=== PATIENT | male | born 1970 | race Caucasian/White ===

== ENCOUNTER → 2016-07-08 | Outpatient (CLI) | payer BC ==
--- NOTE | 2016-07-08 14:48 | US ---
EXAMINATION TYPE: US carotid duplex BILAT DATE OF EXAM: 07/08/2016 2:16 PM COMPARISON: No previous CLINICAL HISTORY: G459 transient cerebral ischemic attack. Syncope EXAM MEASUREMENTS: RIGHT: Peak Systolic Velocity (PSV) cm/sec ----- Right CCA: 81.0 ----- Right ICA: 83.1 ----- Right ECA: 92.0 ICA/CCA ratio: 1.0 RIGHT: End Diastole cm/sec ----- Right CCA: 26.7 ----- Right ICA: 39.1 ----- Right ECA: 18.3 LEFT: Peak Systolic Velocity (PSV) cm/sec ----- Left CCA: 88.1 ----- Left ICA: 93.0 ----- Left ECA: 94.0 ICA/CCA ratio: 1.1 LEFT: End Diastole cm/sec ----- Left CCA: 27.0 ----- Left ICA: 45.8 ----- Left ECA: 21.2 VERTEBRALS (direction of flow): Right Vertebral: Antegrade Left Vertebral: Antegrade TECHNOLOGIST IMPRESSION: Bilateral intimal thickening, no elevated velocities, no significant stenos is. IMPRESSION: I DO NOT SEE EVIDENCE OF A HEMODYNAMICALLY SIGNIFICANT STENOSIS IN EITHER CAROTID SYSTEM. Criteria for Assigning % of Stenosis / Diameter reduction (Estimation based on the indirect measurements of the internal carotid artery velocities (ICA PSV). 1. Normal (no stenosis)=ICA PSV < 125 cm/s: ratio < 2.0: ICA EDV<40 cm/s. 2. Less than 50% stenosis=ICA PSV < 125 cm/s: ratio < 2.0: ICA EDV<40 cm/s. 3. 50 to 69% stenosis=ICA PSV of 125 to 230 cm/s: ration 2.0 ? 4.0: ICA EDV 40-100 cm/s. 4. Greater than 70% stenosis to near occlusion= ICA PSV > 230 cm/s: ratio > 4.0: ICA EDV > 100 cm/s. 5. Near occlusion= ICA PSV velocities may be low or undetectable: variable ratio and ICA EDV. 6. Total occlusion=unable to detect flow.
--- NOTE | 2016-07-09 19:54 | ECHOF ---
Referral Reason:[id number] transient cerebral ischemic attack MEASUREMENTS -------- HEIGHT: 152.4 cm WEIGHT: 111.1 kg BP: RVIDd: 2.9 cm (< 3.3) IVSd: 1.1 cm (0.6 - 1.1) LVIDd: 4.1 cm (3.9 - 5.3) LVPWd: 1.3 cm (0.6 - 1.1) IVSs: 1.3 cm LVIDs: 4.1 cm LVPWs: 1.3 cm Ao Diam: 3.6 cm (2.0 - 3.7) AV Cusp: 2.3 cm (1.5 - 2.6) LA Diam: 4.0 cm (2.7 - 3.8) MV EXCURSION: 21.866 mm (> 18.000) MV EF SLOPE: 117 mm/s (70 - 150) EPSS: 0.8 cm MV E Malik: 0.79 m/s MV DecT: 184 ms MV A Malik: 0.66 m/s MV E/A Ratio: 1.20 RAP: 5.00 mmHg RVSP: 12.70 mmHg FINDINGS -------- Sinus rhythm. This was a technically good study. LV size, wall thickness and systolic function are normal, with an EF greater than 55%. Left ventricular wall thickness is normal. The right ventricle is normal in size. The left atrial size is normal. The right atrial size is normal. There is mild aortic valve sclerosis. There is no evidence of aortic regurgitation. Mild mitral annular calcification present. Mild mitral regurgitation is present. Mild tricuspid regurgitation present. There is no evidence of pulmonary hypertension. The right ventricular systolic pressure, as measured by Doppler, is 12.70mmHg. There is no pulmonic regurgitation present. The aortic root size is normal. There is no pericardial effusion. CONCLUSIONS -------- 1. LV size, wall thickness and systolic function are normal, with an EF greater than 55%. 2. There is mild aortic valve sclerosis. 3. Mild mitral annular calcification present. 4. Mild mitral regurgitation is present. 5. Mild tricuspid regurgitation present. 6. There is no evidence of pulmonary hypertension. 7. The right ventricular systolic pressure, as measured by Doppler, is 12.70mmHg. 8. The aortic root size is normal. 9. There is no pericardial effusion. INTERIOR SURFACE INSULATION WORKER: Pennie Lynn RDCS
== END | disposition home or self-care (01) ==
LOC: RADECHMAIN 13:19
PROVIDERS: ATTEND Family Medicine
DX: I08.1 Rheumatic disorders of both mitral and tricuspid valves (principal); G45.9 Transient cerebral ischemic attack, unspecified
CPT/HCPCS: 93306; 93880